=== PATIENT | male | born 1945 | race Caucasian/White ===

== ENCOUNTER 2017-08-16 17:57 | Inpatient (IN) | payer MEDICARE, OTHER, SELFPAY ==
[2017-08-16 17:58] VITALS: BP 152/119; PULSE 66; RESP 16; TEMP 36.6; O2SAT 96; BMI 19.2
--- NOTE | 2017-08-16 18:23 | CT_ITS ---
STUDY: CT ABDOMEN AND PELVIS WITHOUT CONTRAST REASON FOR EXAM: Male, 72 years old. Right flank pain. RADIATION DOSAGE (If Supplied By Facility): CTDIvol = ( 11.73 ) mGy, DLP = ( 618.37 ) mGycm TECHNIQUE: Transaxial images were obtained from the dome of the diaphragm to the symphysis pubis without oral contrast, and without intravenous contrast. Sagittal and coronal images were reconstructed. Individualized dose optimization techniques were used for this CT. COMPARISON: None. FINDINGS: Limited views through the lower chest show small bilateral pleural effusions and possible bilateral chronic bronchitis with bronchial wall thickening. There is decreased attenuation of the liver consistent with steatosis. There is hepatomegaly. There are surgical clips in the gallbladder fossa consistent with a prior cholecystectomy. Normal spleen. There is diffuse enlargement of the pancreas with isma-pancreatic edema suggesting acute pancreatitis. Normal bilateral adrenal glands. Normal right kidney. Left kidney has a 4 mm mid renal stone and a 2 mm lower pole stone. Otherwise negative left kidney. Evaluation of the GI tract is limited by absence of oral contrast. Cannot exclude stomach wall thickening. No dilated loops of bowel or evidence for obstruction. Cannot exclude segmental thickening of the pitt of the small or large bowel. Cannot exclude enteritis or colitis. Moderate diffuse fecal retention. Diverticulosis without definite diverticulitis. Appendix within normal limits. Normal abdominal aorta. Normal inferior vena cava. Normal retroperitoneum. Normal urinary bladder. There is enlargement of the prostate gland. There is a right-sided inguinal hernia containing adipose tissue. There are diffuse degenerative changes of the visualized lumbar spine. Partial compression fracture of L2 which appears old. CT/Abdomen/Pelvis without Cont IMPRESSION: Findings consistent with acute pancreatitis without focal fluid collections. Nonobstructing left renal stones. Electronically Signed: Jean Marie Zayas MD at 19:15 EDT , Service support ,
[2017-08-16] MEDS: Ketorolac 30 MG/ML Syringe IM (18:32)
[2017-08-16 18:45] LABS: Bacteria 0 SEEN /hpf (None Seen); Mucous, Urine 0 SEEN /hpf (<or=2+); Squamous Epithelial Cells - UA 0 SEEN /hpf (0-5); White Blood Cells 0 SEEN /hpf (0-5)
[2017-08-16 18:46] LABS: Color, Urine Yellow (Yellow); Glucose, Dipstick 250 mg/dl (Normal); Ketone-Dipstick 15 mg/dl (Negative); Leukocyte Esterase-Dipstick Negative /ul (Negative); Nitrite-Dipstick Negative (Negative); Occult Blood-Urine Negative /ul (Negative); Protein-Dipstick 15 mg/dl (Negative); Urine Bilirubin Dipstick Negative (Negative); Urine Clarity Clear (Clear); Urine Urobilinogen Normal (Normal)
[2017-08-16 18:54] LABS: Red Blood Cells-Urine 0-5 SEEN /hpf (0-5)
[2017-08-16] MEDS: 0.9% Normal Saline 1,000 ML 1000 ML IV ×2 (19:46→19:47)
[2017-08-16 20:04] LABS: Absolute Lymphocyte Count 0.94 X10^3/ul (0.83-4.51); Absolute Neutrophil Count 9.5 X10^3/uL (2.0-7.7); Basophil# 0.01 X10^3/uL; Basophil% 0.1 % (0-1); Eosinophil# 0.02 X10^3/uL; Eosinophils% 0.2 % (0-5); Hematocrit 39.1 % (40-54); Hemoglobin 13.2 g/dl (13.0-16.5); Lymphocyte # 0.94 X10^3/ul (4.0); Mean Corp Hgb Conc 33.8 g/gl (32-36); Mean Corpuscular Hgb 30.3 pg (27.0-32.0); Mean Corpuscular Volume 89.9 fL (80-94); Mean Platelet Vol. 9.8 fl (6.2-12.0); Monocyte# 1.28 X10^3/uL; Monocyte% 10.8 % (0-10); Neutrophil # 9.54 X10^3/uL (2.7-7.7); Neutrophil % 80.8 % (47-70); Platelet Count 194 K/mm3 (150-450); RBC Distribution Width CV 16.9 % (11.6-14.6); RBC Distribution Width SD 55.8 fl (35.1-43.9); Red Blood Count 4.35 M/mm3 (4.6-6.2); White Blood Count 11.8 K/mm3 (4.4-11.0)
[2017-08-16 20:22] LABS: BUN 11 mg/dL (7-18); Creatinine, Serum 0.91 mg/dL (0.70-1.30); Estimated Creatinine Clearance 60.33 ml/min; Glucose 163 mg/dL (74-106)
[2017-08-16 20:23] LABS: ALB/GLOB Ratio 0.9 RATIO (0.9-2.4); AST(SGOT) 14 U/L (15-37); Alanine Aminotransfer ALT/SGPT 19 U/L (16-61); Albumin, Serum 3.3 g/dL (3.2-5.0); Alkaline Phosphatase 55 U/L (45-117); Anion Gap 8 (5-15); BUN/Creat Ratio 12.1 RATIO (10-20); Calcium,Total 8.6 mg/dL (8.5-10.1); Chloride 101 mmol/L (98-107); EST Glomerular Filtration Rate 87 mL/min (>60); Est Glom Filt Rate - Afr Amer 105 mL/min (>60); Globulin 3.8 g/dL (2.2-4.2); Lipase 1847 U/L (73-393); Potassium 4.2 mmol/L (3.5-5.1); Protein, Total 7.1 g/dL (6.4-8.2); Sodium Level 135 mmol/L (136-145)
--- NOTE | 2017-08-16 20:43 | ED.RN ---
CALLED [facility] TO SEE IF PATIENT COULD BE TRANSFERRED TO THEM. THEY DO NOT HAVE ANY BEDS AVAILABLE AT THIS TIME.
--- NOTE | 2017-08-16 20:44 | ED.VISSUMM ---
- ER Visit Summary Date of Service: 08/16/17 Chief Complaint: Flank pain History of Present Illness: The patient is a 72 M presenting for evaluation secondary to flank pain. Patient states over the course last 3 days he has had right flank pain that is a continuous sharp pain that started to radiate down towards his groin. Patient states that it has been associated with some nausea. Denies any vomiting diarrhea fevers associated with this. Does state that he has a mild amount urinary frequency. Patient states that he has had a history of kidney stones in the past with somewhat of a similar presentation. Patient is status post cholecystectomy, review of systems otherwise negative. Physical Examination: Vital signs within normal limits. Well-nourished elderly male no acute distress. No conjunctival pallor moist mucous membranes. No JVD. Heart regular rate and rhythm lungs sounds clear. Abdomen tender in the right lower quadrant no guarding no rebound. CVA tenderness was not noted. Peripheral pulses 2+ and symmetric. Test Results: CT abdomen and pelvis shows pancreatitis. Urinalysis negative. Lipase found to be elevated at 1800 Emergency Department Course and Treatment: Patient presented for evaluation secondary to flank pain. Patient's initial presentation was more concerning for kidney stone urinalysis was found to be negative CT abdomen and pelvis and up showing some stones in the patient's kidneys, but no ureteral stones but did show inflammation around the patient's pancreas. Therefore laboratory studies were added on, and the patient was found to have a lipase of 1800. He was started on aggressive hydration will be admitted for further workup and treatment. Disposition: Admission Impression: 1. Pancreatitis This note was generated with Pinguo dictation software. It may contain incorrect words, spelling, and punctuation that were not noted in review of the chart prior to signing ED Disposition - Plan for ED Patient: Chief Complaint: Flank Pain Referrals: [facility],[place] [Primary Care Provider] -
[2017-08-16 20:47] LABS: POSITIVE COUNT NO; POSITIVE DIFFERENTIAL NO; POSITIVE MORPHOLOGY NO
[2017-08-16 20:51] VITALS: BP 151/83; PULSE 98; RESP 16; O2SAT 98
[2017-08-16 22:18] VITALS: BMI 30.7
[2017-08-16 22:23] VITALS: BMI 30.7
--- NOTE | 2017-08-16 22:31 | HP.PCM_ITS ---
Problem List (1) Pancreatitis Status: Acute (2) Hyponatremia Status: Acute (3) Kidney stone Status: Acute History of Present Illness Date of Admission: 08/16/17 Chief Complaint: Pancreatitis The patient is a 72 year old male w/ h/o HTN, RUSSEL, and lipidemia admitted for pancreatitis. Pt had right flank and back pain. Pain is sharp and constant. Eating made it worse. Nothing improved the pain. Pain is severe and has been getting worse during the past few days. Pain is associated with n/v. Pt had decrease PO intake secondary to pain. Pt is from [place] and is here visiting family. Pt went to the ED for workup. Past Medical History Allergies No Known Allergies Allergy (Verified 08/16/17 17:58) Home Medications: Ambulatory Orders Medication Instructions Recorded Unobtainable [Unobtainable] 08/16/17 Smoking Status: Former smoker Alcohol: None Drugs: None - *Family History Maternal History Items: No pertinent history Review of Systems Constitutional: Denies: Chills, Fever, Weight Change HEENT: Denies: Head Aches, Sinus Congestion, Sinus Drainage Cardiovascular: Denies: Chest Pain, Palpitations Respiratory: Denies: Cough, Shortness of breath at rest, Sputum production Gastrointestinal: Reports: Abdominal Pain, Nausea, Vomiting Genitourinary: Denies: Dysuria Musculoskeletal: Denies: Joint Pain, Joint Tenderness Skin: Denies: Rash, Wounds Neurological: Denies: Numbness, Tingling, Focal weakness Psychiatric: Denies: Anxiety, Depression, Homicidal Ideations, Suicidal Ideations Hematologic/ Lymphatic: Denies: Easy Bruising, Easy Bleeding VTE Information - Inpt Only VTE Present on Admission: No VTE Mechan Device Prophylaxis: SCD's VTE Pharm Prophylaxis ordered?: Yes Patient Problems: Active and Suspected Problems Pancreatitis (Acute) Hyponatremia (Acute) Kidney stone (Acute) - Physical Exam General: Alert, Oriented x3, Cooperative HEENT: Atraumatic, PERRLA, EOMI, Normocephalic Neck: Supple, No JVD, Negative Carotid Bruits Lungs: Clear to auscultation, Normal air movement Cardiovascular: Regular rate, No murmurs Abdomen: Bowel Sounds Present, Soft, Tender, - - No guarding. No rebound Extremities: No edema, Capillary Refill Less than 3 Seconds Skin: No rashes, No breakdown Musculoskeletal: No Tenderness to Palpation of Joints or Extremities Neurological: Cranial nerves II-XII grossly intact Psych/Mental Status: Normal Affect, Appropriate Vital Signs Temp Pulse Resp BP Pulse Ox 97.8 F 98 16 151/83 H 98 08/16/17 17:58 08/16/17 20:51 08/16/17 20:51 08/16/17 20:51 08/16/17 20:51 Oxygen Delivery Method Room Air Weight: 94.3 kg Body Mass Index (BMI) 30.7 Laboratory Tests Past 24 Hrs 08/16/17 08/16/17 08/16/17 18:15 19:50 19:50 WBC 11.8 H RBC 4.35 L Hgb 13.2 Hct 39.1 L MCV 89.9 MCH 30.3 MCHC 33.8 RDW 16.9 H RDW Differential 55.8 H Plt Count 194 MPV 9.8 Immature Gran % (Auto) 0.100 Neut % (Auto) 80.8 H Lymph % (Auto) 8.0 L [place] % (Auto) 10.8 H Eos % (Auto) 0.2 Baso % (Auto) 0.1 Absolute Neuts (auto) 9.5 H Absolute Lymphs (auto) 0.94 Total Counted Not Reportable Sodium 135 L Potassium 4.2 Chloride 101 Carbon Dioxide 26.0 Anion Gap 8 BUN 11 Creatinine 0.91 Estim Creat Clear Calc 60.33 Est GFR (MDRD) Af Amer 105 Est GFR (MDRD) Non-Af 87 BUN/Creatinine Ratio 12.1 Glucose 163 H Calcium 8.6 Total Bilirubin 0.90 AST 14 L ALT 19 Alkaline Phosphatase 55 Total Protein 7.1 Albumin 3.3 Globulin 3.8 Albumin/Globulin Ratio 0.9 Lipase 1847 H Urine Color Yellow Urine Clarity Clear Urine pH 6.0 Ur Specific [place] 1.010 Urine Protein 15 H Urine Glucose (UA) 250 H Urine Ketones 15 H Urine Occult Blood Negative Urine Nitrite Negative Urine Bilirubin Negative Urine Urobilinogen Normal Ur Leukocyte Esterase Negative Urine RBC 0-5 SEEN Urine WBC 0 SEEN Ur Squamous Epith Cells 0 SEEN Urine Bacteria 0 SEEN Urine Mucus 0 SEEN Assessment/Plan Active and Suspected Problems Pancreatitis (Acute) Hyponatremia (Acute) Kidney stone (Acute) 72 year old male w/ h/o HTN, RUSSEL, and lipidemia admitted for pancreatitis. 1) Pancreatitis: Lipase 1847 CT disclosed acute pancreatitis. No hypercalcemia, no acute anemia. No e/o ARGELIA. LFTs wnl. Hydration. Pain controlled with morphine. NPO Serial labs. 2) Hypovolemia hyponatremia: Hydration. Na 135 If no improvement, will get workup, ie serum osmol, urine osmol, urine Na, TSH, and cortisol. Serial labs. Monitor. 3) Nonobstructing left renal stones: Hydration. No acute symptoms. Pt to f/u with urology outpt. Will need litholink, Vit D and PTH as outpt. Supportive care. 4) Prophylaxis: Heparin / SCD.
[2017-08-16 22:36] VITALS: BP 124/71; PULSE 93; RESP 16; TEMP 36.4; O2SAT 94
--- NOTE | 2017-08-16 22:43 | NURSING ---
pt doesnt know his home meds family to bring in am
[2017-08-16] MEDS: 0.9% Normal Saline 1,000 ML 150 ML IV (23:17)
[2017-08-16] MEDS: 0.9% NaCl Peripheral Flush Adult/Peds IV (23:18)
[2017-08-16] MEDS: Morphine 2 MG/ML Syringe IV (23:18)
[2017-08-17 04:36] VITALS: BP 126/68; PULSE 94; RESP 18; TEMP 36.6; O2SAT 97
[2017-08-17] MEDS: Magnesium Hydroxide 30 ML UDC PO (05:23)
[2017-08-17] MEDS: Morphine 2 MG/ML Syringe IV ×5 (05:23→22:41)
[2017-08-17] MEDS: 0.9% Normal Saline 1,000 ML 150 ML IV (05:23)
[2017-08-17] MEDS: 0.9% NaCl Peripheral Flush Adult/Peds IV ×4 (05:23→22:42)
[2017-08-17 05:59] LABS: Absolute Lymphocyte Count 0.77 X10^3/ul (0.83-4.51); Absolute Neutrophil Count 9.7 X10^3/uL (2.0-7.7); Basophil# 0.01 X10^3/uL; Basophil% 0.1 % (0-1); Eosinophil# 0.02 X10^3/uL; Eosinophils% 0.2 % (0-5); Hematocrit 37.8 % (40-54); Hemoglobin 12.8 g/dl (13.0-16.5); Lymphocyte # 0.77 X10^3/ul (4.0); Lymphocyte % 6.5 % (19-41); Mean Corp Hgb Conc 33.9 g/gl (32-36); Mean Corpuscular Hgb 30.6 pg (27.0-32.0); Mean Corpuscular Volume 90.4 fL (80-94); Mean Platelet Vol. 10.6 fl (6.2-12.0); Monocyte# 1.29 X10^3/uL; Neutrophil # 9.65 X10^3/uL (2.7-7.7); Platelet Count 192 K/mm3 (150-450); Red Blood Count 4.18 M/mm3 (4.6-6.2); White Blood Count 11.8 K/mm3 (4.4-11.0)
[2017-08-17 06:03] LABS: POSITIVE COUNT NO; POSITIVE DIFFERENTIAL NO; POSITIVE MORPHOLOGY NO
[2017-08-17 07:39] VITALS: BP 121/71; PULSE 96; RESP 18; TEMP 36.4; O2SAT 97
[2017-08-17 08:19] LABS: Anion Gap 9 (5-15); BUN 13 mg/dL (7-18); BUN/Creat Ratio 13.4 RATIO (10-20); Calcium,Total 8.4 mg/dL (8.5-10.1); Chloride 105 mmol/L (98-107); Creatinine, Serum 0.97 mg/dL (0.70-1.30); EST Glomerular Filtration Rate 81 mL/min (>60); Est Glom Filt Rate - Afr Amer 97 mL/min (>60); Estimated Creatinine Clearance 67.83 ml/min; Glucose 169 mg/dL (74-106); Lipase 963 U/L (73-393); Potassium 4.3 mmol/L (3.5-5.1); Sodium Level 137 mmol/L (136-145)
[2017-08-17 11:04] LABS: Hemoglobin A1c 7.1 % (4.2-6.3)
[2017-08-17 11:50] LABS: Bedside Glucose 180 mg/dL (70-110)
[2017-08-17] MEDS: 0.9% Normal Saline 1,000 ML 100 ML IV ×2 (11:56→22:19)
--- NOTE | 2017-08-17 13:00 | PCM.PROGNOTE ---
<Halle Miller - Last Filed: 08/17/17 13:11> Patient Problems: Active and Suspected Problems Pancreatitis (Acute) Hyponatremia (Acute) Kidney stone (Acute) Subjective: Patient seen and examined. Denies further abdominal pain. Complains of dry mouth. Denies further nausea. Patient states he has had right upper quadrant abdominal pain intermittently in the past following meals but has never sought medical attention. He denies fever, chills. Denies other complaints. - Physical Exam General: Alert, Oriented x3, Cooperative, No apparent distress HEENT: Atraumatic, PERRLA, EOMI, Normocephalic Neck: Supple, No JVD, Negative Carotid Bruits Lungs: Clear to auscultation, Normal air movement Cardiovascular: Regular rate, Regular Rhythm, Normal S1, Normal S2, No murmurs Abdomen: Bowel Sounds Present, Soft, Non Tender, Non-Distended, Obese Extremities: No clubbing, No cyanosis, No edema, Capillary Refill Less than 3 Seconds Skin: No rashes, No breakdown Musculoskeletal: No Tenderness to Palpation of Joints or Extremities Neurological: Cranial nerves II-XII grossly intact, Neuro grossly intact Psych/Mental Status: Normal Affect, Appropriate Vital Signs Temp Pulse Resp BP Pulse Ox 97.5 F L 96 18 121/71 H 97 08/17/17 07:39 08/17/17 07:39 08/17/17 07:39 08/17/17 07:39 08/17/17 07:39 Oxygen Delivery Method Room Air Weight: 94.3 kg Body Mass Index (BMI) 30.7 Intake and Output for Last 24 Hours 08/15/17 08/16/17 08/17/17 23:59 23:59 23:59 Intake Total 2046 / 2046 Output Total 480 / 480 Balance 1566 / 1566 Laboratory Tests Past 24 Hrs 08/17/17 08/17/17 08/17/17 05:25 05:25 05:25 WBC 11.8 H RBC 4.18 L Hgb 12.8 L Hct 37.8 L MCV 90.4 MCH 30.6 MCHC 33.9 RDW 17.0 H RDW Differential 55.0 H Plt Count 192 MPV 10.6 Immature Gran % (Auto) 0.200 Neut % (Auto) 82.0 H Lymph % (Auto) 6.5 L [place] % (Auto) 11.0 H Eos % (Auto) 0.2 Baso % (Auto) 0.1 Absolute Neuts (auto) 9.7 H Absolute Lymphs (auto) 0.77 L Total Counted Not Reportable Sodium 137 Potassium 4.3 Chloride 105 Carbon Dioxide 23.0 Anion Gap 9 BUN 13 Creatinine 0.97 Estim Creat Clear Calc 67.83 Est GFR (MDRD) Af Amer 97 Est GFR (MDRD) Non-Af 81 BUN/Creatinine Ratio 13.4 Glucose 169 H Hemoglobin A1c 7.1 H Calcium 8.4 L Lipase 963 H POC Glucose 08/17/17 11:43 POC Glucose 180 H Medical Necessity - Tobacco Use Smoking Status: Former smoker Assessment/Plan Active and Suspected Problems Pancreatitis (Acute) Hyponatremia (Acute) Kidney stone (Acute) Patient is a 72-year-old male admitted 08/16/2017 due to pancreatitis. He has a past medical history of hypertension, obstructive sleep apnea, hyperlipidemia, BPH, GERD, type 2 diabetes mellitus, iron deficiency anemia. 1. Acute pancreatitis-suspected alcoholic pancreatitis given chronic daily alcohol use. Lipase significantly decreased with n.p.o. status and IV fluids. Lipase 1847 on admission, 963 today. Repeat in a.m. Advance to clear liquid diet. Check triglycerides. CT of abdomen showed acute pancreatitis. Liver function within normal limits. Continue IV fluids. Zofran as needed for nausea. 2. Nonobstructing left renal stones-denies flank pain or other acute symptoms. Recommend outpatient follow-up with urology. 3. Alcohol dependence-patient reports daily alcohol use. Encouraged cessation. 4. Type 2 diabetes mellitus-home regimen on hold. Accu-Cheks before meals at bedtime with sliding scale insulin. 5. Hypertension-stable, continue to monitor. Does not appear to be on home antihypertensive regimen. 6. Hyperlipidemia-check lipid panel. 7. Obstructive sleep apnea 8. BPH-continue Flomax regimen. 9. GERD-continue PPI. 10. Iron deficiency anemia-stable. Continue iron supplementation when able to tolerate oral intake. DVT prophylaxis-heparin subcu. This patient was seen by NIKOLAI Gonzalez under the supervision of Dr. Thompson. <Jordy Thompson - Last Filed: 08/17/17 14:55> - Physical Exam Vital Signs Temp Pulse Resp BP Pulse Ox 97.7 F L 110 H 18 141/86 H 95 08/17/17 13:34 08/17/17 13:34 08/17/17 13:34 08/17/17 13:34 08/17/17 13:34 Oxygen Delivery Method Room Air Weight: 207 lb 14.334 oz Body Mass Index (BMI) 30.7 Intake and Output for Last 24 Hours 08/15/17 08/16/17 08/17/17 23:59 23:59 23:59 Intake Total 2046 / 2046 Output Total 480 / 480 Balance 1566 / 1566 Laboratory Tests Past 24 Hrs 08/17/17 08/17/17 08/17/17 05:25 05:25 05:25 WBC 11.8 H RBC 4.18 L Hgb 12.8 L Hct 37.8 L MCV 90.4 MCH 30.6 MCHC 33.9 RDW 17.0 H RDW Differential 55.0 H Plt Count 192 MPV 10.6 Immature Gran % (Auto) 0.200 Neut % (Auto) 82.0 H Lymph % (Auto) 6.5 L [place] % (Auto) 11.0 H Eos % (Auto) 0.2 Baso % (Auto) 0.1 Absolute Neuts (auto) 9.7 H Absolute Lymphs (auto) 0.77 L Total Counted Not Reportable Sodium 137 Potassium 4.3 Chloride 105 Carbon Dioxide 23.0 Anion Gap 9 BUN 13 Creatinine 0.97 Estim Creat Clear Calc 67.83 Est GFR (MDRD) Af Amer 97 Est GFR (MDRD) Non-Af 81 BUN/Creatinine Ratio 13.4 Glucose 169 H Hemoglobin A1c 7.1 H Calcium 8.4 L Triglycerides Cholesterol LDL Cholesterol VLDL Cholesterol HDL Cholesterol Lipase 963 H 08/17/17 05:25 WBC RBC Hgb Hct MCV MCH MCHC RDW RDW Differential Plt Count MPV Immature Gran % (Auto) Neut % (Auto) Lymph % (Auto) [place] % (Auto) Eos % (Auto) Baso % (Auto) Absolute Neuts (auto) Absolute Lymphs (auto) Total Counted Sodium Potassium Chloride Carbon Dioxide Anion Gap BUN Creatinine Estim Creat Clear Calc Est GFR (MDRD) Af Amer Est GFR (MDRD) Non-Af BUN/Creatinine Ratio Glucose Hemoglobin A1c Calcium Triglycerides 63 Cholesterol 126 LDL Cholesterol 45 VLDL Cholesterol 13 HDL Cholesterol 68 Lipase POC Glucose 08/17/17 11:43 POC Glucose 180 H Assessment/Plan Hospitalist note: I am seeing this patient in conjunction with Halle Miller. I independently seen and examined the patient. Progress note above, laboratory data and imaging studies reviewed and I agree with above treatment plan. Patient was admitted for abdominal pain, found to have elevated pancreatic lipase consistent with acute pancreatitis. Patient seen and examined today. Reported improvement of his abdominal pain, almost resolved. Denied nausea vomiting. Patient admitted drinking alcohol 1 beer daily most of his days. His vital signs are stable. - Physical Exam General: Alert, Oriented x3, Cooperative, No apparent distress. HEENT: Atraumatic, PERRLA, EOMI. Neck: Supple, No JVD, Negative Carotid Bruits, Trachea Midline, Thyroid Normal. Lungs: Clear to auscultation, Normal air movement, No rhonchi, No wheeze, No rales. Cardiovascular: Regular rate, Regular Rhythm, Normal S1, Normal S2, PMI Normal. Abdomen: Bowel Sounds Present, Soft, Non Tender, Non-Distended, No Hepato-splenomegaly. Extremities: No clubbing, No cyanosis, No edema Skin: No rashes, No breakdown Neurological: Neuro grossly intact Vital Signs are stable. Assessment and plan: #1 acute pancreatitis, suspected to be due to alcoholic pancreatitis versus medication side effects. Patient has been on Lipitor and Onglyza which both can cause pancreatitis but rarely. Patient is status post cholecystectomy. LFTs normal. He is on IV fluids, kept on n.p.o. and IV antiemetics as well as IV pain medications. Lipase is trending down. Patient symptoms improved. Plan to continue same treatment. #2 nonobstructing left kidney stones: Small stones without evidence of obstruction, no hydronephrosis. Kidney function is normal. #3 other chronic medical problems: Stable, continue current medications as above. This note was generated with Whimseybox dictation software. It may contain incorrect words, spelling, and punctuation that were not noted in checking the note before signing. Code Visit Inpatient E&M: 08636 Subs Hosp L2
[2017-08-17 13:20] LABS: Cholesterol 126 mg/dL (200); High Density Lipoprotein 68 mg/dL; Triglycerides 63 mg/dL; Very Low Density Lipoprotein 13 mg/dL (5-40)
[2017-08-17] MEDS: Tamsulosin HCl 0.4 MG Capsule PO (13:31)
[2017-08-17 13:34] VITALS: BP 141/86; PULSE 110; RESP 18; TEMP 36.5; O2SAT 95
[2017-08-17 16:26] LABS: Bedside Glucose 184 mg/dL (70-110)
[2017-08-17] MEDS: Senna Tablet 2 TABLET PO (17:46)
[2017-08-17 20:12] VITALS: BP 142/65; PULSE 63; RESP 16; TEMP 36.4; O2SAT 93
[2017-08-17 22:50] LABS: Bedside Glucose 167 mg/dL (70-110)
[2017-08-18 02:15] VITALS: BP 133/81; PULSE 64; RESP 18; TEMP 36.7; O2SAT 93
[2017-08-18] MEDS: Morphine 2 MG/ML Syringe IV ×2 (05:41→10:09)
[2017-08-18] MEDS: 0.9% NaCl Peripheral Flush Adult/Peds IV (05:41)
[2017-08-18 06:12] LABS: Absolute Lymphocyte Count 1.04 X10^3/ul (0.83-4.51); Absolute Neutrophil Count 9.6 X10^3/uL (2.0-7.7); Basophil# 0.01 X10^3/uL; Basophil% 0.1 % (0-1); Eosinophil# 0.03 X10^3/uL; Eosinophils% 0.3 % (0-5); Hematocrit 36.6 % (40-54); Hemoglobin 12.3 g/dl (13.0-16.5); Lymphocyte # 1.04 X10^3/ul (4.0); Lymphocyte % 8.7 % (19-41); Mean Corp Hgb Conc 33.6 g/gl (32-36); Mean Corpuscular Hgb 30.5 pg (27.0-32.0); Mean Corpuscular Volume 90.8 fL (80-94); Mean Platelet Vol. 10.5 fl (6.2-12.0); Monocyte# 1.25 X10^3/uL; Monocyte% 10.5 % (0-10); Neutrophil # 9.57 X10^3/uL (2.7-7.7); Neutrophil % 80.1 % (47-70); Platelet Count 201 K/mm3 (150-450); RBC Distribution Width CV 17.4 % (11.6-14.6); RBC Distribution Width SD 56.6 fl (35.1-43.9); Red Blood Count 4.03 M/mm3 (4.6-6.2); White Blood Count 11.9 K/mm3 (4.4-11.0)
[2017-08-18 06:17] LABS: ALB/GLOB Ratio 0.7 RATIO (0.9-2.4); AST(SGOT) 21 U/L (15-37); Alanine Aminotransfer ALT/SGPT 17 U/L (16-61); Albumin, Serum 2.7 g/dL (3.2-5.0); Alkaline Phosphatase 54 U/L (45-117); Anion Gap 9 (5-15); BUN 10 mg/dL (7-18); BUN/Creat Ratio 11.4 RATIO (10-20); Calcium,Total 8.1 mg/dL (8.5-10.1); Chloride 103 mmol/L (98-107); Creatinine, Serum 0.87 mg/dL (0.70-1.30); EST Glomerular Filtration Rate 91 mL/min (>60); Est Glom Filt Rate - Afr Amer 110 mL/min (>60); Estimated Creatinine Clearance 75.62 ml/min; Globulin 3.7 g/dL (2.2-4.2); Glucose 168 mg/dL (74-106); Lipase 325 U/L (73-393); Protein, Total 6.4 g/dL (6.4-8.2); Sodium Level 134 mmol/L (136-145)
[2017-08-18 06:22] LABS: POSITIVE COUNT NO; POSITIVE DIFFERENTIAL NO; POSITIVE MORPHOLOGY NO
[2017-08-18] MEDS: Senna Tablet 2 TABLET PO (06:32)
[2017-08-18 06:36] LABS: Bedside Glucose 204 mg/dL (70-110)
[2017-08-18] MEDS: 0.9% Normal Saline 1,000 ML 100 ML IV (08:25)
[2017-08-18 08:30] VITALS: BP 121/83; PULSE 98; RESP 18; TEMP 36.8; O2SAT 95
--- NOTE | 2017-08-18 09:52 | PCM.DC ---
- Discharge Diagnoses Current Active Problems: Current Active and Chronic Problems Pancreatitis (Acute) Hyponatremia (Acute) Kidney stone (Acute) You will use the following diet at home:: Other - Low fat diet, encourage alcohol cessation. Discharge Activity: Return to Normal Activity Call your doctor if you observe: Fever of 101 or Higher, - - Increased abdominal pain. Uncontrolled nausea, vomiting. Instructions: Understanding Pancreatitis, Discharge Instructions for Acute Pancreatitis Allergies/Adverse Reactions: Allergies No Known Allergies Allergy (Verified 08/16/17 17:58) Medications to take at Discharge Aspirin [Aspirin, Baby] 81 mg PO QHS 08/17/17 Atorvastatin Calcium [Lipitor] 40 mg PO QHS 08/17/17 Ferrous Sulfate [Iron] 325 mg PO TID 08/17/17 Glipizide [Glucotrol] 10 mg PO BID 08/17/17 Metformin HCl 850 mg PO TIDCM 08/17/17 Nortriptyline HCl 25 mg PO QHS 08/17/17 Pantoprazole Sodium [Protonix] 40 mg PO DAILY 08/17/17 Pioglitazone [Actos] 45 mg PO LUNCH 08/17/17 Saxagliptin HCl [Onglyza] 5 mg PO QHS 08/17/17 Tamsulosin HCl [Flomax] 0.4 mg PO 1400 08/17/17 Primary Care Physician: [facility],[place] [Primary Care Provider] - Please follow up with your Primary Care Physician in: 1 Week Please Follow Up With: Osito Shannon MD - Urology When: 1-2 Weeks for non-obstructing left renal stones Proposed Discharge Date: 08/18/17
--- NOTE | 2017-08-18 09:56 | DCINST_ITS ---
- Discharge Diagnoses Current Active Problems: Current Active and Chronic Problems Pancreatitis (Acute) Hyponatremia (Acute) Kidney stone (Acute) You will use the following diet at home:: Other - Low fat diet, encourage alcohol cessation. Discharge Activity: Return to Normal Activity Call your doctor if you observe: Fever of 101 or Higher, - - Increased abdominal pain. Uncontrolled nausea, vomiting. Instructions: Understanding Pancreatitis, Discharge Instructions for Acute Pancreatitis Allergies/Adverse Reactions: Allergies No Known Allergies Allergy (Verified 08/16/17 17:58) Medications to take at Discharge Aspirin [Aspirin, Baby] 81 mg PO QHS 08/17/17 Atorvastatin Calcium [Lipitor] 40 mg PO QHS 08/17/17 Ferrous Sulfate [Iron] 325 mg PO TID 08/17/17 Glipizide [Glucotrol] 10 mg PO BID 08/17/17 Metformin HCl 850 mg PO TIDCM 08/17/17 Nortriptyline HCl 25 mg PO QHS 08/17/17 Pantoprazole Sodium [Protonix] 40 mg PO DAILY 08/17/17 Pioglitazone [Actos] 45 mg PO LUNCH 08/17/17 Saxagliptin HCl [Onglyza] 5 mg PO QHS 08/17/17 Tamsulosin HCl [Flomax] 0.4 mg PO 1400 08/17/17 Primary Care Physician: [facility] [Primary Care Provider] - Please follow up with your Primary Care Physician in: 1 Week Please Follow Up With: Osito Shannon MD - Urology When: 1-2 Weeks for non-obstructing left renal stones Proposed Discharge Date: 08/18/17
--- NOTE | 2017-08-18 09:58 | PCM.DC.SUM ---
<Halle Miller - Last Filed: 08/18/17 10:05> Discharge Date and Diagnosis Date of Admission: 08/16/17 Date of Discharge: 08/18/17 - Primary Discharge Diagnosis Active and Suspected Problems 1. Acute pancreatitis, suspected alcoholic pancreatitis 2. Nonobstructing left renal stones - Secondary Discharge Diagnosis Alcohol dependence Hypertension Type 2 diabetes mellitus Hyperlipidemia Obstructive sleep apnea BPH GERD Iron deficiency anemia Hospital Course and Treatment Imaging Results: Diagnostic Data Abdomen/Pelvis CT 08/16/17 18:23 IMPRESSION: Findings consistent with acute pancreatitis without focal fluid collections. Nonobstructing left renal stones. Electronically Signed: Jean Marie Zayas MD at 19:15 EDT , Service support , Operations: None Procedures: None Summary of Care Provided: Patient is a 72-year-old male admitted 08/16/2017 due to pancreatitis. He has a past medical history of hypertension, obstructive sleep apnea, hyperlipidemia, BPH, GERD, type 2 diabetes mellitus, iron deficiency anemia. 1. Acute pancreatitis-suspected alcoholic pancreatitis given chronic daily alcohol use. Lipase 1847 on admission, within normal limits at discharge. Patient now tolerating regular diet. CT of abdomen showed acute pancreatitis. Liver function within normal limits. Educated patient on low-fat diet and alcohol cessation. He will follow-up with primary care physician in 1 week. 2. Nonobstructing left renal stones-denies flank pain or other acute symptoms. Recommend outpatient follow-up with urology in 1-2 weeks. 3. Alcohol dependence-patient reports daily alcohol use. Encouraged cessation. 4. Type 2 diabetes mellitus-continue home oral regimen. Hemoglobin A1c 7.1%. 5. Hypertension-stable, not on home regimen. Continue to monitor by primary care physician. 6. Hyperlipidemia-continue statin. No elevated triglycerides. 7. Obstructive sleep apnea 8. BPH-continue Flomax regimen. 9. GERD-continue PPI. 10. Iron deficiency anemia-stable, continue iron supplementation. General: Alert, Oriented x3, Cooperative, No apparent distress HEENT: Atraumatic, PERRLA, EOMI, Normocephalic Neck: Supple, No JVD, Negative Carotid Bruits Lungs: Clear to auscultation, Normal air movement Cardiovascular: Regular rate, Regular Rhythm, Normal S1, Normal S2, No murmurs Abdomen: Bowel Sounds Present, Soft, Non Tender, Non-Distended, Obese Extremities: No clubbing, No cyanosis, No edema, Capillary Refill Less than 3 Seconds Skin: No rashes, No breakdown Musculoskeletal: No Tenderness to Palpation of Joints or Extremities Neurological: Cranial nerves II-XII grossly intact, Neuro grossly intact Psych/Mental Status: Normal Affect, Appropriate Patient seen and examined prior to discharge. Denies further abdominal pain, nausea. Stable for discharge home with recommendations as noted above. This patient was seen by NIKOLAI Gonzalez under the supervision of Dr. Thompson. Discharge Diet: Low fat/ Low Cholesterol Discharge Activity: Return to Normal Activity Call your doctor if you observe: Fever of 101 or Higher, - - Increased abdominal pain. Uncontrolled nausea, vomiting. Home Medications: Medications to take at Discharge Aspirin [Aspirin, Baby] 81 mg PO QHS 08/17/17 Atorvastatin Calcium [Lipitor] 40 mg PO QHS 08/17/17 Ferrous Sulfate [Iron] 325 mg PO TID 08/17/17 Glipizide [Glucotrol] 10 mg PO BID 08/17/17 Metformin HCl 850 mg PO TIDCM 08/17/17 Nortriptyline HCl 25 mg PO QHS 08/17/17 Pantoprazole Sodium [Protonix] 40 mg PO DAILY 08/17/17 Pioglitazone [Actos] 45 mg PO LUNCH 08/17/17 Saxagliptin HCl [Onglyza] 5 mg PO QHS 08/17/17 Tamsulosin HCl [Flomax] 0.4 mg PO 1400 08/17/17 [facility] Physician: [facility]Primary [facility] Provider] - Please follow up with your Primary Care Physician in: 1 Week Please Follow Up With: Osito Shannon MD - Urology When: 1-2 Weeks for non-obstructing left renal stones Patient Instructions: Understanding Pancreatitis, Discharge Instructions for Acute Pancreatitis Disposition: Home Minutes spent on discharge:: 35 Patient Condition:: Stable Medical Necessity - Tobacco Use Smoking Status: Former smoker Meaningful Use Info Meaningful Use Diagnoses (Choose all that apply): None applicable <Jordy Thompson - Last Filed: 08/18/17 13:26> Hospital Course and Treatment Summary of Care Provided: Hospitalist note: Discharge summary above reviewed as well as physical examination and I agree with above discharge plan. Patient seen and examined on the day of discharge and appeared to be stable to be discharged home. He has no more abdominal pain and he has been tolerating diet. His vital signs are stable. His lipase came back down to normal. He was found to have acute pancreatitis which is attributed to alcoholic pancreatitis. Also, patient has been on Lipitor and Onglyza which both can cause pancreatitis but rarely. His LFT was normal and he had a history of cholecystectomy. Patient was treated with IV fluids, IV pain medications and IV antiemetics and acute on clear liquids for 1 day. Her symptoms improved and his lipase came down to normal. Patient counseled about his alcohol drinking and recommended to quit drinking alcohol. Is found to have none obstructing left kidney stones and recommended to follow-up with urology as outpatient. His kidney function was normal. I explained to the patient the possible complications of acute pancreatitis including chronic pancreatitis and chronic pain as well as chronic diarrhea. I mentioned to him that couple of his medications may cause similar problem but rarely which includes Lipitor and Onglyza. Patient discharged home in a stable medical condition, discharged on his home medication without any changes, recommended to follow-up with PCP in 1 week. Minutes spent on discharge:: 32 Code Visit Inpatient E&M: 21203 Disch Hosp
[2017-08-18] MEDS: Magnesium Hydroxide 30 ML UDC PO (10:04)
--- NOTE | 2017-08-18 10:17 | CASEMGMT ---
CM Assessment: Patient is visiting family and resides in [place]. [facility] His regular PCP has just moved out of the country, but he has been assigned a new PCP. He states that he does regularly follow with primary care. Patient uses a CPAP at night. No DME and no home health. Patient states he plans to drive back to [place] tomorrow morning and does not foresee any discharge needs at this time. DC Plan: Home. CM will follow should needs arise.
[2017-08-18 12:01] LABS: Bedside Glucose 214 mg/dL (70-110)
[2017-08-18] MEDS: Tamsulosin HCl 0.4 MG Capsule PO (12:05)
== END 2017-08-18 13:16 | disposition home or self-care (01) | DRG 439 ==
LOC: ED 19:35 → MS2 21:45
PROVIDERS: Nurse Practitioner Family; Admitting Provider Internal Medicine; Emergency Provider Emergency Medicine; Visit Provider Hospitalist
DX: K85.20 Alcohol induced acute pancreatitis without necrosis or infection (principal); E87.1 Hypo-osmolality and hyponatremia; E11.9 Type 2 diabetes mellitus without complications; E78.5 Hyperlipidemia, unspecified; D50.9 Iron deficiency anemia, unspecified; F10.20 Alcohol dependence, uncomplicated; G47.33 Obstructive sleep apnea (adult) (pediatric); I10 Essential (primary) hypertension; N20.0 Calculus of kidney; N40.0 Benign prostatic hyperplasia without lower urinary tract symptoms; K21.9 Gastro-esophageal reflux disease without esophagitis; Z87.442 Personal history of urinary calculi; Z90.49 Acquired absence of other specified parts of digestive tract; Z87.891 Personal history of nicotine dependence; Z79.82 Long term (current) use of aspirin; Y90.9 Presence of alcohol in blood, level not specified
CPT/HCPCS: 36415; 74176; 80048; 80053; 80061; 81001; 82962; 83036; 83690; 85025; 99282; J7030; A4216